=== PATIENT | female | born 1950 | race Caucasian/White ===

== ENCOUNTER 2022-05-21 11:29 | Emergency (ER) | payer MEDICARE, MEDICAID, SELFPAY ==
[2022-05-21 11:40] VITALS: BP 151/83; PULSE 103; RESP 20; TEMP 36.8; O2SAT 98
--- NOTE | 2022-05-21 12:14 | ED.URI ---
HPI - URI/Sore Throat General Chief Complaint: Upper Respiratory Infection Stated Complaint: nose clogged,running Time Seen by Provider: 05/21/22 12:14 Source: patient, RN notes reviewed and old records reviewed Mode of arrival: ambulatory Limitations: no limitations History of Present Illness HPI Narrative: 72 year old female who presents to [facility] with complaints of nose feeling clogged, her ears are popping , some headache discomfort and sinus congestion. She reports that she has tried Vaseline in her nose and has noted some nasal scabbing and blood. Patient is on home oxygen therapy for history of COPD emphysema with previous history of lung cancer with right upper lobe lobectomy. Patient admits that she continues to use tobacco daily. Patient denies anyincrease in her dyspnea or any fevers. MD elicited complaint: other (nose clogged ) Pertinent past history: COPD and other (lung cancer) Onset (ago): week(s) (1) Pain scale (0-10): 3 Able to tolerate fluids by mouth: Yes Treatments prior to arrival: other (vaseline) Related Data Allergies Allergy/AdvReac Type Severity Reaction Status Date / Time gadobenic acid Allergy Swelling Verified 05/21/22 12:08 [From contrast - MRI] iohexol Allergy Swelling Verified 05/21/22 12:08 [From contrast - CT, X-RAY] acetaminophen [From Percocet] AdvReac Hallucinati Verified 05/21/22 12:07 ng oxycodone [From Percocet] AdvReac Hallucinati Verified 05/21/22 12:07 ng Review of Systems Review of Systems: CONSTITUTIONAL: Denies malaise, chills, sweats, or fever. EYES: Denies visual changes, redness, or discharge. ENT: Reports no rhinorrhea,positive for nasal congestion, sinus pain, otalgia, denies sore throat. CARDIOVASCULAR: Denies chest pain, palpitations, or edema. RESPIRATORY: Reports no acute cough.? Denies acute dyspnea.has COPD on home oxygen GASTROINTESTINAL: Denies abdominal pain, nausea, vomiting, diarrhea SKIN: Denies rash or itching. MUSCULOSKELETAL: Denies myalgia. NEUROLOGIC: Reports headache. All systems reviewed & are unremarkable except as noted in HPI and below PMFSH Past Medical History Medical History (Updated 05/22/22 @ 11:16 by María Elena Madera NP) Anxiety and depression Arthritis COPD (chronic obstructive pulmonary disease) Diabetes Elevated cholesterol GERD (gastroesophageal reflux disease) Hypertension Lung cancer right upper lobectomy and radiation Surgical History Surgical History (Updated 05/22/22 @ 11:09 by María Elena Madera NP) History of cholecystectomy History of lobectomy of lung right upper Social History Social History (Updated 05/22/22 @ 11:09 by María Elena Madera NP) Smoking packs per day: 1 Smoking cigarettes per day: 20.0 Years smoked: 50 Smoking pack-years: 50.00 Smoking status: Current every day smoker Tobacco type: cigarettes Alcohol intake: unknown Substance use type: does not use Occupation/Education: retired Gender identity (if verbalized by the patient): Female Comments At time of signature, agree with nursing past medical, surgical, social and family history. There is no relevant family history pertinent to the presenting complaint Exam Narrative: GENERAL: Well-appearing, well-nourished, and in no acute distress. HEAD: Normocephalic EYES: PERRLA, conjunctivae clear, ENT: Nares clear, turbinates edematous and erythematous some scabbing and old blood noted no sinus drainage noted. Mucous membranes moist. TM pearly lea with dull light reflex bilaterally; no tragal tenderness. Oropharynx erythematous without lesions. Tonsils not enlarged and without exudate, no drooling, no hoarseness, no trismus, uvula midline. NECK: Supple. No lymphadenopathy CHEST: Decreased to auscultation, breath sounds equal right upper lobe absent, No wheezing, rhonchi, rales, or stridor. No respiratory distress, speaks in full sentences.SAO2 99% on room air while in clinic. HE
== END 2022-05-21 12:35 | disposition home or self-care (01) ==
PROVIDERS: Emergency Provider Registered Nurse
DX: J32.9 Chronic sinusitis, unspecified (principal); F17.210 Nicotine dependence, cigarettes, uncomplicated; M19.90 Unspecified osteoarthritis, unspecified site; J44.9 Chronic obstructive pulmonary disease, unspecified; E11.9 Type 2 diabetes mellitus without complications; E78.00 Pure hypercholesterolemia, unspecified; K21.9 Gastro-esophageal reflux disease without esophagitis; I10 Essential (primary) hypertension; Z85.118 Personal history of other malignant neoplasm of bronchus and lung; Z92.3 Personal history of irradiation; Z90.2 Acquired absence of lung [part of]
CPT/HCPCS: 99213; G0463

== ENCOUNTER 2022-08-22 11:50 | Emergency (ER) | payer MEDICARE, MEDICAID, SELFPAY ==
--- NOTE | ~2022-08-22 | XR_ITS ---
Right foot Technique: AP, oblique, and lateral views were obtained. Clinical History: Pain Findings: No acute fracture or dislocation is seen. Old, healed fracture deformity of distal fifth me tatarsal shaft noted. Osseous alignment is anatomic. Joint spaces are preserved without erosive or de generative change. Soft tissues are unremarkable. Impression: No acute fracture or dislocation. Reviewed, dictated and finalized at location . Impression: No acute fracture or dislocation.
[2022-08-22 11:55] VITALS: BP 115/61; PULSE 102; RESP 18; TEMP 36.3; O2SAT 97
[2022-08-22 12:09] VITALS: BP 115/61; PULSE 102; RESP 18; TEMP 36.3; O2SAT 97
--- NOTE | 2022-08-22 12:11 | ED.LOWEXIN ---
HPI - Extremity Injury (Lower) General Chief Complaint: Extremity Injury, Lower Stated Complaint: Right Foot Injury Source: patient and RN notes reviewed History of Present Illness HPI Narrative: 72 yo F presents to urgent care with caregiver at side. Pt presents with a bruised, tender, right foot. Pt states on Thursday, she fell after having a couple cocktails at her sister's bday green party, injuring her foot. Pt denies any head injury or LOC. Pt states her foot has been in pain ever since and its difficult to apply weight and pivot on it. Denies any numbness, tingling, chest pain, SOB, dizziness, vomiting, or abdominal pain. Pt has been elevating and applying ice to the foot with minimal relief. Related Data Home Medications Medication Instructions Recorded Confirmed atorvastatin 10 mg tablet 10 mg PO DAILY 08/22/22 08/22/22 bupropion HCl 150 mg 24 hr tablet, 150 mg PO QAM 08/22/22 08/22/22 extended release fluticasone fur. 100 mcg-umeclid 1 inh inhalation DAILY 08/22/22 08/22/22 62.5 mcg-vilant 25 mcg inhalat.powder (Trelegy Ellipta) metformin 500 mg tablet 500 mg PO BID 08/22/22 08/22/22 omeprazole 40 mg capsule,delayed 40 mg PO DAILY 08/22/22 08/22/22 release ropinirole 0.5 mg tablet 0.5 mg PO BID 08/22/22 08/22/22 warfarin 10 mg tablet 8 mg PO DAILY 08/22/22 08/22/22 Allergies Allergy/AdvReac Type Severity Reaction Status Date / Time gadobenic acid Allergy Swelling Verified 08/22/22 12:06 [From contrast - MRI] iohexol Allergy Swelling Verified 08/22/22 12:06 [From contrast - CT, X-RAY] acetaminophen [From Percocet] AdvReac Hallucinati Verified 08/22/22 12:06 ng oxycodone [From Percocet] AdvReac Hallucinati Verified 08/22/22 12:06 ng Review of Systems Review of Systems: Pertinent positives and pertinent negatives per HPI. [facility] Past Medical History Medical History (Updated 08/22/22 @ 12:31 by Melanie Alonzo, VALARIE) Anxiety and depression Arthritis COPD (chronic obstructive pulmonary disease) Diabetes Elevated cholesterol GERD (gastroesophageal reflux disease) Hypertension Lung cancer right upper lobectomy and radiation Surgical History Surgical History (Updated 05/22/22 @ 11:09 by María Elena Madera NP) History of cholecystectomy History of lobectomy of lung right upper Social History Social History (Updated 05/22/22 @ 11:09 by María Elena Madera NP) Smoking packs per day: 1 Smoking cigarettes per day: 20.0 Years smoked: 50 Smoking pack-years: 50.00 Smoking status: Current every day smoker Tobacco type: cigarettes Alcohol intake: unknown Substance use type: does not use Occupation/Education: retired Gender identity (if verbalized by the patient): Female Comments At the time of my signature, I reviewed and agree with the nursing past medical, surgical, social, and family history. There is no relevant family history pertinent to the patient complaint. Exam Narrative: GENERAL: This is a well-nourished, well-developed patient, in no apparent distress. HEAD: normocephalic, atraumatic. EYES: Sclera clear/white. Vision is grossly intact. EARS: External ears normal, auditory canals clear and without drainage. Hearing grossly intact. NOSE: External nose normal with no obvious nasal discharge, nares without redness, no rhinorrhea. THROAT: Mucous membranes moist, posterior pharynx clear. NECK: Neck supple, non-tender without lymphadenopathy, masses or thyromegaly. CARDIOVASCULAR: Regular rate and rhythm without murmurs, gallops, or rubs. RESPIRATORY: Clear to auscultation. Breath sounds equal bilaterally. No wheezes, rales, or rhonchi. GASTROINTESTINAL: Abdomen soft, non-tender, nondistended. Bowel sounds are active. No hepato-splenomegaly, or palpable masses. No guarding. SKIN: warm, intact with no suspicious lesions or rash, good texture and turgor. NEURO: awake, alert, and oriented to person, place and time. There were no obvious focal ne
== END 2022-08-22 12:33 | disposition home or self-care (01) ==
PROVIDERS: Emergency Provider Nurse Practitioner Family
DX: S93.601A Unspecified sprain of right foot, initial encounter (principal); S90.32XA Contusion of left foot, initial encounter; X58.XXXA Exposure to other specified factors, initial encounter; F17.210 Nicotine dependence, cigarettes, uncomplicated; M19.90 Unspecified osteoarthritis, unspecified site; J44.9 Chronic obstructive pulmonary disease, unspecified; E11.9 Type 2 diabetes mellitus without complications; E78.00 Pure hypercholesterolemia, unspecified; K21.9 Gastro-esophageal reflux disease without esophagitis; I10 Essential (primary) hypertension; Z85.118 Personal history of other malignant neoplasm of bronchus and lung; Z92.3 Personal history of irradiation; Z90.2 Acquired absence of lung [part of]; Z79.01 Long term (current) use of anticoagulants
CPT/HCPCS: 73630; 99213; G0463